=== PATIENT | male | born 1945 | race Caucasian/White ===

== ENCOUNTER 2024-07-25 06:17 | Inpatient (IN) | payer OTHER, MEDICARE ==
[~2024-07-25] VITALS: Ht 182.9 cm; Wt 91.4 kg
[~2024-07-25 06:17] MED LIST: ATOR40TA71 PO
[2024-07-25 07:23] LABS: BASOPHILS % (AUTO) 0.1 % (0-1); EOSINOPHILS % (AUTO) 0 % (0-6); HEMOGLOBIN 13.1 g/dl (14.0-17.9); LYMPHOCYTES # (AUTO) 1.2 X10'3 (1.1-4.8); LYMPHOCYTES % (AUTO) 15.3 % (21-51); MEAN CORPUSCULAR HEMOGLOBIN 31.5 PG (27.0-31.0); MEAN CORPUSCULAR HGB CONC 33.6 g/dL (33.0-36.5); MEAN CORPUSCULAR VOLUME 93.8 FL (78-98); MEAN PLATELET VOLUME 7.5 FL (7.4-10.4); MONOCYTES # (AUTO) 1.2 X10'3 (0-0.9); MONOCYTES % (AUTO) 15.6 % (2-12); NEUTROPHILS # (AUTO) 5.4 X10'3 (1.8-7.7); PLATELET COUNT 237 X10'3 (140-440); RED BLOOD COUNT 4.16 X10'6 (4.70-6.10); RED CELL DISTRIBUTION WIDTH 13.3 % (11.5-14.5); WHITE BLOOD COUNT 7.8 X10'3 (4.5-11.0)
[2024-07-25 07:34] LABS: ALANINE AMINOTRANSFERASE 108 U/L (12-78); ALBUMIN 2.7 G/DL (3.4-5.0); ALBUMIN/GLOBULIN RATIO 0.6 (1.1-1.5); ALKALINE PHOSPHATASE 58 IU/L (46-116); ANION GAP 12 (8-16); ASPARTATE AMINO TRANSFERASE 82 U/L (10-37); BLOOD UREA NITROGEN 19 MG/DL (7-18); BUN/CREATININE RATIO 18.6 (10.0-20.0); CALCIUM 8.7 MG/DL (8.5-10.1); CHLORIDE 100 MMOL/L (99-107); CREATININE 1.02 MG/DL (0.60-1.10); GLUCOSE 111 MG/DL (70-104); POTASSIUM 3.4 MMOL/L (3.5-5.1); SODIUM 135 MMOL/L (135-145); TOTAL CARBON DIOXIDE 23.4 MMOL/L (24-32); TOTAL PROTEIN 6.9 G/DL (6.4-8.2); eCRCL 67 ML/MIN; eGFR 71 ML/MIN
[2024-07-25 07:42] LABS: PRO BRAIN NATRIURETIC PEPTIDE 835 PG/ML (0-450)
[2024-07-25] MEDS ORDERED: albuterol 2.5 MG/3 ML nebule NEB PRN (11:55)
[2024-07-25] MEDS ORDERED: potassium Cl 40MEQ/1/2NS 520ml 520 ML IV PRN (11:55)
[2024-07-25] MEDS: PERFLUTREN PROTEIN-A MICROSPHR (Optison) 0.22 MG/ML 3ML VIAL IV ONE (11:55)
[2024-07-25] MEDS ORDERED: potassium Cl 20 mEq SR tablet PO PRN (11:55)
[2024-07-25] MEDS ORDERED: magnesium sulf-water 2g/50mL 50 ML IV PRN (11:55)
[2024-07-25] MEDS ORDERED: mag hydrox/Alum hydrox/simeth 30ml oral suspension PO PRN (11:55)
[2024-07-25] MEDS ORDERED: acetaminophen 325mg tablet PO PRN (11:55)
[2024-07-25] MEDS ORDERED: aminophylline 250mg/10ml inj. IV PRN (11:55)
[2024-07-25] MEDS ORDERED: metoprolol tartrate 1mg/ml inj IV PRN (11:55)
[2024-07-25] MEDS ORDERED: HYDROcodone/acetaminophen 10/325mg tab PO PRN (11:55)
[2024-07-25] MEDS ORDERED: nitroGLYCERIN 0.4mg SUBLingual tab SL PRN (11:55)
[2024-07-25] MEDS ORDERED: morphine 2 MG/ML inj. syringe IV PRN (11:55)
[2024-07-25] MEDS ORDERED: magnesium hydroxide 30ml (MOM) UD suspension PO PRN (11:55)
[2024-07-25] MEDS ORDERED: magnesium sulf-water 4G/100mL 100 ML IV PRN (11:55)
[2024-07-25] MEDS ORDERED: haloperidol lactate 5mg/ml inj IM PRN (11:55)
[2024-07-25] MEDS ORDERED: haloperidol 5mg tablet PO PRN (11:55)
[2024-07-25] MEDS ORDERED: ondansetron/PF 4mg/2ml inj IV PRN (11:55)
[2024-07-25] MEDS ORDERED: iohexol 350MG/ML 100ml bottle IV ONE (12:07)
[2024-07-25] MEDS: azithromycin 250mg tablet PO ONE (12:44)
[2024-07-25] MEDS: CefTRIAXone/D5W-Rocephin 1gm 50 ML IV ONE (12:45)
[2024-07-25] MEDS: furosemide 10 MG/1 ML 10ml inj IV ONE (12:45)
[2024-07-25] MEDS: potassium Cl 20 mEq SR tablet PO PRN (12:47)
[2024-07-25 16:54] VITALS: PULSE 83; RESP 18; O2SAT 91
[2024-07-25 17:24] LABS: ABG BASE EXCESS 1.8 mmol/L (-2.0-3.0); ABG OXYGEN SATURATION 91.4 % (94.0-98.0); ABG PCO2 (T) 27.1 mmHg (35.0-48.0); ABG PH (T) 7.547 (7.350-7.450); ALLEN'S TEST POSITIVE; FCOHb 0.3 % (0.5-1.5); FHHb 8.5 % (0.0-5.0); FMetHb 0.3 % (0.0-1.5); FO2Hb 90.9 % (94.0-98.0); MODE ROOM AIR; PATIENT TEMPERATURE 36.9; TOTAL HEMOGLOBIN 14.2 G/dl (13.5-17.5)
[2024-07-25] MEDS: morphine 2 MG/ML inj. syringe IV PRN (17:36)
[2024-07-25] MEDS: K and/or MAG REPLACEMENT MC SCH (20:00)
[2024-07-25] MEDS: docusate sod 100mg capsule PO SCH (20:00)
[2024-07-25] MEDS: ipratropium/albuterol 3ml nebule NEB SCH (20:36)
[2024-07-25 20:37] VITALS: PULSE 80; RESP 22; O2SAT 95
[2024-07-25 20:47] VITALS: PULSE 74; RESP 18
[2024-07-25 20:53] LABS: ALANINE AMINOTRANSFERASE 192 U/L (12-78); ALBUMIN 2.9 G/DL (3.4-5.0); ALBUMIN/GLOBULIN RATIO 0.7 (1.1-1.5); ALKALINE PHOSPHATASE 64 IU/L (46-116); ANION GAP 12 (8-16); ASPARTATE AMINO TRANSFERASE 190 U/L (10-37); BILIRUBIN,TOTAL 0.8 MG/DL (0.1-1.0); BLOOD UREA NITROGEN 22 MG/DL (7-18); BUN/CREATININE RATIO 23.4 (10.0-20.0); CALCIUM 8.8 MG/DL (8.5-10.1); CHLORIDE 98 MMOL/L (99-107); CREATININE 0.94 MG/DL (0.60-1.10); GLUCOSE 109 MG/DL (70-104); POTASSIUM 3.8 MMOL/L (3.5-5.1); SODIUM 132 MMOL/L (135-145); TOTAL CARBON DIOXIDE 21.6 MMOL/L (24-32); TOTAL PROTEIN 7.2 G/DL (6.4-8.2); eCRCL 72 ML/MIN; eGFR 78 ML/MIN
[2024-07-25] MEDS: acetaminophen 325mg tablet PO PRN (20:57)
[2024-07-25] MEDS: enoxaparin 40mg/0.4ml syringe SQ SCH (20:59)
[2024-07-25 22:30] VITALS: BP 97/59; PULSE 74; RESP 18; TEMP 99.9; O2SAT 93
[2024-07-26] VITALS (26 sets, daily range): BP systolic 97–133; BP diastolic 57–68; PULSE 76–110; RESP 16–46; TEMP 97.7–99.9; O2SAT 88–95
[2024-07-26] MEDS: HYDROcodone/acetaminophen 5mg/325mg tablet PO PRN (00:07)
[2024-07-26 06:45] LABS: BASOPHILS % (AUTO) 0.5 % (0-1); EOSINOPHILS % (AUTO) 0.2 % (0-6); HEMATOCRIT 38.4 % (42.0-52.0); HEMOGLOBIN 12.9 g/dl (14.0-17.9); LYMPHOCYTES # (AUTO) 0.8 X10'3 (1.1-4.8); LYMPHOCYTES % (AUTO) 8.8 % (21-51); MEAN CORPUSCULAR HEMOGLOBIN 31.1 PG (27.0-31.0); MEAN CORPUSCULAR HGB CONC 33.4 g/dL (33.0-36.5); MEAN CORPUSCULAR VOLUME 93.1 FL (78-98); MEAN PLATELET VOLUME 7.7 FL (7.4-10.4); MONOCYTES # (AUTO) 1.1 X10'3 (0-0.9); MONOCYTES % (AUTO) 12.4 % (2-12); NEUTROPHILS # (AUTO) 6.8 X10'3 (1.8-7.7); NEUTROPHILS % (AUTO) 78.1 % (42-75); PLATELET COUNT 242 X10'3 (140-440); RED BLOOD COUNT 4.13 X10'6 (4.70-6.10); RED CELL DISTRIBUTION WIDTH 13.1 % (11.5-14.5); WHITE BLOOD COUNT 8.7 X10'3 (4.5-11.0)
[2024-07-26 06:59] LABS: INR 1.3 INR; PROTHROMBIN TIME 13.2 SECONDS (9.0-12.0)
[2024-07-26 07:07] LABS: ALANINE AMINOTRANSFERASE 187 U/L (12-78); ALBUMIN 2.6 G/DL (3.4-5.0); ALBUMIN/GLOBULIN RATIO 0.6 (1.1-1.5); ALKALINE PHOSPHATASE 57 IU/L (46-116); ANION GAP 10 (8-16); ASPARTATE AMINO TRANSFERASE 131 U/L (10-37); BILIRUBIN,TOTAL 0.9 MG/DL (0.1-1.0); BLOOD UREA NITROGEN 21 MG/DL (7-18); BUN/CREATININE RATIO 21.4 (10.0-20.0); CALCIUM 8.5 MG/DL (8.5-10.1); CHLORIDE 100 MMOL/L (99-107); CREATININE 0.98 MG/DL (0.60-1.10); GLUCOSE 105 MG/DL (70-104); LIPASE 49 U/L (16-77); MAGNESIUM 2.3 MG/DL (1.5-2.4); PHOSPHORUS 3.4 MG/DL (2.3-4.5); SODIUM 135 MMOL/L (135-145); TOTAL CARBON DIOXIDE 25.1 MMOL/L (24-32); TOTAL PROTEIN 6.7 G/DL (6.4-8.2); eCRCL 69 ML/MIN; eGFR 74 ML/MIN
[2024-07-26] MEDS: regadenoson 0.4mg/5ml syringe IV PRN (09:30)
[2024-07-26] MEDS: LORazepam 2 mg/ml vial IV PRN (10:54)
[2024-07-26] MEDS: CefTRIAXone/D5W-Rocephin 1gm 50 ML IV SCH (10:59)
[2024-07-26] MEDS: azithromycin 250mg tablet PO SCH (11:01)
[2024-07-26] MEDS: aspirin 81mg tab.chew PO ONE (16:20)
[2024-07-26] MEDS: methylPREDNISolone sod succ 125mg/2ml vial IV ONE (16:25)
[2024-07-26] MEDS: ipratropium/albuterol 3ml nebule NEB SCH (20:38)
[2024-07-27] VITALS (15 sets, daily range): BP systolic 107–119; BP diastolic 60–69; PULSE 68–86; RESP 15–46; TEMP 96.8–99.4; O2SAT 91–94
[2024-07-27] MEDS: methylPREDNISolone sod succ/PF 40mg inj. IV SCH (00:13)
[2024-07-27 06:32] LABS: BASOPHILS % (AUTO) 0.2 % (0-1); EOSINOPHILS % (AUTO) 0 % (0-6); HEMATOCRIT 38.5 % (42.0-52.0); HEMOGLOBIN 12.7 g/dl (14.0-17.9); LYMPHOCYTES # (AUTO) 0.4 X10'3 (1.1-4.8); LYMPHOCYTES % (AUTO) 5.9 % (21-51); MEAN CORPUSCULAR HEMOGLOBIN 30.9 PG (27.0-31.0); MEAN CORPUSCULAR HGB CONC 33.1 g/dL (33.0-36.5); MEAN CORPUSCULAR VOLUME 93.4 FL (78-98); MONOCYTES # (AUTO) 0.2 X10'3 (0-0.9); MONOCYTES % (AUTO) 3.2 % (2-12); NEUTROPHILS # (AUTO) 6.1 X10'3 (1.8-7.7); NEUTROPHILS % (AUTO) 90.7 % (42-75); PLATELET COUNT 251 X10'3 (140-440); RED BLOOD COUNT 4.12 X10'6 (4.70-6.10); RED CELL DISTRIBUTION WIDTH 13.3 % (11.5-14.5); WHITE BLOOD COUNT 6.7 X10'3 (4.5-11.0)
[2024-07-27 06:52] LABS: INR 1.3 INR; PROTHROMBIN TIME 13.5 SECONDS (9.0-12.0)
[2024-07-27 06:54] LABS: ALANINE AMINOTRANSFERASE 144 U/L (12-78); ALBUMIN 2.6 G/DL (3.4-5.0); ALBUMIN/GLOBULIN RATIO 0.6 (1.1-1.5); ALKALINE PHOSPHATASE 58 IU/L (46-116); ANION GAP 10 (8-16); ASPARTATE AMINO TRANSFERASE 71 U/L (10-37); BLOOD UREA NITROGEN 25 MG/DL (7-18); BUN/CREATININE RATIO 23.4 (10.0-20.0); CALCIUM 8.8 MG/DL (8.5-10.1); CHLORIDE 102 MMOL/L (99-107); CHOL/HDL RATIO 3.4 (0.00-4.99); CHOLESTEROL 96 MG/DL (0-200); CREATININE 1.07 MG/DL (0.60-1.10); GLUCOSE 127 MG/DL (70-104); HDL CHOLESTEROL 28 MG/DL (35-60); LDL CHOLESTEROL 53 MG/DL (50-100); LIPASE 37 U/L (16-77); MAGNESIUM 2.8 MG/DL (1.5-2.4); PHOSPHORUS 3.9 MG/DL (2.3-4.5); POTASSIUM 4.4 MMOL/L (3.5-5.1); SODIUM 137 MMOL/L (135-145); TOTAL CARBON DIOXIDE 25.1 MMOL/L (24-32); TOTAL PROTEIN 7.2 G/DL (6.4-8.2); TRIGLYCERIDES 56 MG/DL (20-135); eCRCL 63 ML/MIN; eGFR 67 ML/MIN
[2024-07-27] MEDS ORDERED: LORazepam 2 mg/ml vial IV PRN (11:55)
[2024-07-27] MEDS ORDERED: LORazepam 1 MG tablet PO PRN (11:55)
[2024-07-28] VITALS (12 sets, daily range): BP systolic 111–123; BP diastolic 61–70; PULSE 4–86; RESP 16–22; TEMP 96.6–98.2; O2SAT 93–98
[2024-07-28 06:28] LABS: BASOPHILS % (AUTO) 0.1 % (0-1); EOSINOPHILS % (AUTO) 0 % (0-6); HEMATOCRIT 36.9 % (42.0-52.0); HEMOGLOBIN 12.5 g/dl (14.0-17.9); LYMPHOCYTES # (AUTO) 0.3 X10'3 (1.1-4.8); LYMPHOCYTES % (AUTO) 6.9 % (21-51); MEAN CORPUSCULAR HEMOGLOBIN 31.7 PG (27.0-31.0); MEAN CORPUSCULAR VOLUME 93.2 FL (78-98); MEAN PLATELET VOLUME 8.3 FL (7.4-10.4); MONOCYTES # (AUTO) 0.1 X10'3 (0-0.9); MONOCYTES % (AUTO) 3.2 % (2-12); NEUTROPHILS # (AUTO) 3.9 X10'3 (1.8-7.7); NEUTROPHILS % (AUTO) 89.8 % (42-75); PLATELET COUNT 250 X10'3 (140-440); RED BLOOD COUNT 3.96 X10'6 (4.70-6.10); RED CELL DISTRIBUTION WIDTH 12.8 % (11.5-14.5); WHITE BLOOD COUNT 4.4 X10'3 (4.5-11.0)
[2024-07-28 06:42] LABS: ALANINE AMINOTRANSFERASE 129 U/L (12-78); ALBUMIN 2.4 G/DL (3.4-5.0); ALBUMIN/GLOBULIN RATIO 0.6 (1.1-1.5); ALKALINE PHOSPHATASE 52 IU/L (46-116); ANION GAP 10 (8-16); ASPARTATE AMINO TRANSFERASE 54 U/L (10-37); BILIRUBIN,TOTAL 0.6 MG/DL (0.1-1.0); BLOOD UREA NITROGEN 32 MG/DL (7-18); BUN/CREATININE RATIO 37.2 (10.0-20.0); CALCIUM 8.5 MG/DL (8.5-10.1); CHLORIDE 101 MMOL/L (99-107); CREATININE 0.86 MG/DL (0.60-1.10); GLUCOSE 147 MG/DL (70-104); LIPASE 35 U/L (16-77); MAGNESIUM 2.7 MG/DL (1.5-2.4); PHOSPHORUS 3.5 MG/DL (2.3-4.5); POTASSIUM 3.8 MMOL/L (3.5-5.1); SODIUM 135 MMOL/L (135-145); TOTAL CARBON DIOXIDE 24.1 MMOL/L (24-32); TOTAL PROTEIN 6.6 G/DL (6.4-8.2); eCRCL 79 ML/MIN; eGFR 86 ML/MIN
[2024-07-28 07:35] LABS: INR 1.3 INR; PROTHROMBIN TIME 12.9 SECONDS (9.0-12.0)
[2024-07-28] MEDS ORDERED: LISI20TA28 PO (08:30)
[2024-07-28] MEDS: fluticasone nasal spray 16GM bottle NS SCH (12:35)
[2024-07-28] MEDS ORDERED: butalbital 50MG/acetaminophen 325MG/caffeine 40MG (Fioricet) CAPSULE PO PRN (17:15)
[2024-07-28] MEDS: ACETAMINOPHEN PO PRN (18:06)
[2024-07-28] MEDS: BUTALB PO PRN (18:06)
[2024-07-28] MEDS: CAFFEINE PO PRN (18:06)
[2024-07-29 02:00] VITALS: BP 118/60; PULSE 78; RESP 22; TEMP 97.2; O2SAT 96
[2024-07-29 06:00] VITALS: BP 120/64; PULSE 69; RESP 17; TEMP 97.8; O2SAT 91
[2024-07-29 06:03] LABS: BASOPHILS % (AUTO) 0.1 % (0-1); EOSINOPHILS % (AUTO) 0 % (0-6)
[2024-07-29 06:06] LABS: HEMATOCRIT 35.3 % (42.0-52.0); HEMOGLOBIN 12.1 g/dl (14.0-17.9); LYMPHOCYTES # (AUTO) 0.3 X10'3 (1.1-4.8); LYMPHOCYTES % (AUTO) 6.5 % (21-51); MEAN CORPUSCULAR HEMOGLOBIN 31.6 PG (27.0-31.0); MEAN CORPUSCULAR HGB CONC 34.2 g/dL (33.0-36.5); MEAN CORPUSCULAR VOLUME 92.4 FL (78-98); MEAN PLATELET VOLUME 8.6 FL (7.4-10.4); MONOCYTES # (AUTO) 0.2 X10'3 (0-0.9); MONOCYTES % (AUTO) 5.3 % (2-12); NEUTROPHILS # (AUTO) 3.4 X10'3 (1.8-7.7); NEUTROPHILS % (AUTO) 88.1 % (42-75); PLATELET COUNT 282 X10'3 (140-440); RED BLOOD COUNT 3.82 X10'6 (4.70-6.10); RED CELL DISTRIBUTION WIDTH 12.7 % (11.5-14.5); WHITE BLOOD COUNT 3.9 X10'3 (4.5-11.0)
[2024-07-29 06:11] LABS: INR 1.2 INR; PROTHROMBIN TIME 12.4 SECONDS (9.0-12.0)
[2024-07-29 06:19] LABS: ALANINE AMINOTRANSFERASE 118 U/L (12-78); ALBUMIN 2.4 G/DL (3.4-5.0); ALBUMIN/GLOBULIN RATIO 0.6 (1.1-1.5); ALKALINE PHOSPHATASE 49 IU/L (46-116); ANION GAP 11 (8-16); ASPARTATE AMINO TRANSFERASE 41 U/L (10-37); BILIRUBIN,TOTAL 0.6 MG/DL (0.1-1.0); BLOOD UREA NITROGEN 29 MG/DL (7-18); BUN/CREATININE RATIO 31.2 (10.0-20.0); CALCIUM 8.7 MG/DL (8.5-10.1); CHLORIDE 102 MMOL/L (99-107); CREATININE 0.93 MG/DL (0.60-1.10); GLUCOSE 131 MG/DL (70-104); LIPASE 31 U/L (16-77); MAGNESIUM 2.7 MG/DL (1.5-2.4); PHOSPHORUS 3.9 MG/DL (2.3-4.5); POTASSIUM 4.2 MMOL/L (3.5-5.1); SODIUM 135 MMOL/L (135-145); TOTAL CARBON DIOXIDE 22.5 MMOL/L (24-32); TOTAL PROTEIN 6.3 G/DL (6.4-8.2); eCRCL 73 ML/MIN; eGFR 79 ML/MIN
[2024-07-29 08:00] VITALS: RESP 17; O2SAT 91
[2024-07-29 08:09] VITALS: PULSE 76; RESP 20; O2SAT 95
[2024-07-29 08:16] VITALS: PULSE 68; RESP 24
[2024-07-29 11:00] VITALS: BP 119/74; PULSE 67; RESP 28; TEMP 97.7; O2SAT 90
[2024-07-29] MEDS ORDERED: CEFD300C3 PO (11:48)
[2024-07-29] MEDS ORDERED: PRED20TA PO (11:48)
[2024-07-29] MEDS ORDERED: LORazepam 2 mg/ml vial IV PRN (11:55)
[2024-07-29] MEDS ORDERED: LORazepam 1 MG tablet PO PRN (11:55)
[2024-07-29] MEDS ORDERED: ASPI-1397 PO (18:53)
== END 2024-07-29 13:38 | disposition home health service (06) | DRG 193 ==
LOC: ER 06:18 → ED HOLD 12:08 → PCU 3S 22:34
PROVIDERS: ADMIT Family Medicine; ATTEND Family Medicine
PROC: B32T1ZZ Computerized Tomography (CT Scan) of Left Pulmonary Artery using Low Osmolar Contrast (ICD-10-PCS; principal; 2024-07-25)
PROC: B3201ZZ Computerized Tomography (CT Scan) of Thoracic Aorta using Low Osmolar Contrast (ICD-10-PCS; 2024-07-25)
PROC: B32S1ZZ Computerized Tomography (CT Scan) of Right Pulmonary Artery using Low Osmolar Contrast (ICD-10-PCS; 2024-07-25)
PROC: 4A02XM4 Measurement of Cardiac Total Activity, External Approach (ICD-10-PCS; 2024-07-26)
PROC: 3E033HZ Introduction of Radioactive Substance into Peripheral Vein, Percutaneous Approach (ICD-10-PCS; 2024-07-26)
PROC: 5A0935A Assistance with Respiratory Ventilation, Less than 24 Consecutive Hours, High Flow/Velocity Cannula (ICD-10-PCS; 2024-07-27)
DX: J15.9 Unspecified bacterial pneumonia (principal); I21.A1 Myocardial infarction type 2; J96.00 Acute respiratory failure, unspecified whether with hypoxia or hypercapnia; F10.939 Alcohol use, unspecified with withdrawal, unspecified; E87.6 Hypokalemia; Z20.822 Contact with and (suspected) exposure to COVID-19; I50.9 Heart failure, unspecified; I11.0 Hypertensive heart disease with heart failure; I71.20 Thoracic aortic aneurysm, without rupture, unspecified; E78.5 Hyperlipidemia, unspecified; Z96.642 Presence of left artificial hip joint; Z80.42 Family history of malignant neoplasm of prostate; Z80.0 Family history of malignant neoplasm of digestive organs
CPT/HCPCS: 36415; 36600; 70450; 71045; 71275; 78452; 80053; 80061; 82140; 82803; 83605; 83690; 83735; 83880; 84100; 84484; 85018; 85025; 85610; 87040; 87081; 87502; 87503; 87634; 87811; 93005; 93017; 93306; 94640; 94760; 97110; 97116; 97162; 99285; A4615; A6250; A9500; G0378; J0696; J1650; J1940; J2060; J2270; J2785; J2919; J7040; Q9967